=== PATIENT | male | born 1975 | race Hispanic/Latino ===

== ENCOUNTER 2022-03-24 09:29 | Emergency (ER) | payer SELFPAY ==
[2022-03-24] MEDS ORDERED: AMLODIPINE 10 MG TAB ONE (09:54)
[2022-03-24] MEDS ORDERED: NA CHLORIDE 0.9% 1,000 ML ONE (09:54)
[2022-03-24 10:12] LABS: Hematocrit 46.9 % (39.6-49.0); MPV 8.2 fL (7.6-11.3); RBC Red Blood Cell Count 5.19 M/uL (4.33-5.43)
[2022-03-24 10:28] LABS: ALT/SGPT 42 U/L (12-78); AST/SGOT 30 U/L (15-37); Albumin 3.9 g/dL (3.4-5.0); Alkaline Phosphatase 74 U/L (45-117); BUN Blood Urea Nitrogen 15 mg/dL (7-18); Bicarbonate 25 mmol/L (21-32); Bilirubin Total 1.1 mg/dL (0.2-1.0); Glomerular Filtration Rate 102 ml/min (=/>90); Glucose Level 91 mg/dL (74-106); Potassium 3.8 mmol/L (3.5-5.1); Protein, Total 7.6 g/dL (6.4-8.2); Sodium Level 141 mmol/L (136-145); Troponin High Sensitivity 5.4 pg/mL (<58.9)
[2022-03-24 10:31] LABS: CKMB Creatine Kinase MB < 1.0 ng/mL (1.0-3.6)
--- NOTE | 2022-03-24 10:36 | RAD REPORT ---
EXAM DESCRIPTION: RAD - Chest Single View - 03/24/2022 10:26 am CLINICAL HISTORY: HTN COMPARISON: CHEST PA AND LAT 2 VIEW dated 04/11/2014; CHEST PA AND LAT 2 VIEW dated 01/19/2013; CHEST P A AND LAT 2 VIEW dated 12/02/2011Stone Protocol dated 03/11/2020; CT ABDOMEN PELVIS WO CONTRAST dated 04/11/2014No comparisonsNo comparisons FINDINGS: Lines: None. Lungs: No evidence of edema or pneumonia. Pleural: No significant pleural effusions or pneumothorax. Cardiac: The heart size is within normal limits. Bones: No acute fractures. Other: IMPRESSION: No acute cardiopulmonary disease.
--- NOTE | 2022-03-24 11:09 | EDPHYS ---
Physician Documentation [facility] Name: Jim Chambers Age: 47 yrs Sex: Male : 1975 Arrival Date: 03/24/2022 Time: 09:32 Bed 20 Private MD: ED Physician Berenice Lackey HPI: 03/24 10:31 This 47 yrs old Male presents to ER via Ambulatory with complaints of High en Blood Pressure. 10:31 47 yo M with no known PMHx presents to ED with MAGUIRE and blurred vision since yesterday en after working outside in heat. Pt is concerned his BP may be up. Did not check at home. Reports associated muscle cramping yesterday, which has resolved. No CP, SOB, REESE, numbness, tingling, weakness, AMS, or difficulty with speech. No N/V/D. . Historical: - Allergies: 09:35 No Known Allergies; ll1 - Home Meds: 09:35 None [Active]; ll1 - PMHx: 09:35 None; ll1 - PSHx: 09:35 None; ll1 - Immunization history:: Client reports receiving the 2nd dose of the Covid vaccine. - Social history:: Smoking status: Patient reports the use of cigarette tobacco products, denies chronic smoking, but will smoke occasionally. ROS: 10:31 Constitutional: Negative for fever, chills, and weight loss. en 10:31 Constitutional: Negative for chills, fatigue, fever, malaise. 10:31 Eyes: Positive for blurry vision. 10:31 Cardiovascular: Negative for chest pain, edema, orthopnea, palpitations, paroxysmal nocturnal dyspnea. 10:31 Respiratory: Negative for cough, dyspnea on exertion, shortness of breath. 10:31 Abdomen/GI: Negative for abdominal pain, nausea, vomiting, and diarrhea. 10:31 : Positive for darker urine, no hematuria. 10:31 Skin: Negative for rash. 10:31 Neuro: Positive for headache, Negative for altered mental status, dizziness, gait disturbance, loss of consciousness, speech changes, tingling, weakness. 10:31 All other systems are negative. Exam: 10:31 Constitutional: This is a well developed, well nourished patient who is awake, alert, en and in no acute distress. 10:31 Constitutional: The patient appears in no acute distress, alert, awake. 10:31 Head/face: 10:31 Eyes: Pupils: no acute changes, equal, round, and reactive to light and accomodation, Extraocular movements: intact throughout, Conjunctiva: normal, no exudate, no injection. 10:31 ENT: Mouth: Lips: moist, Oral mucosa: pink and intact, moist, Posterior pharynx: Airway: patent. 10:31 Cardiovascular: Rate: bradycardic, Rhythm: regular, Pulses: no pulse deficits are appreciated, Heart sounds: normal, no murmur, no rub, no gallop. 10:31 Respiratory: the patient does not display signs of respiratory distress, Respirations: normal, Breath sounds: are clear throughout, no rales, rhonchi. 10:31 Abdomen/GI: Inspection: abdomen appears normal, Bowel sounds: normal, in all quadrants, Palpation: abdomen is soft and non-tender, in all quadrants. 10:31 Back: CVA tenderness, is absent. 10:31 Musculoskeletal/extremity: ROM: intact in all extremities, full active range of motion. 10:31 Skin: no rash present. 10:31 Neuro: Orientation: appropriate for stated age, no acute changes, to person, place \T\ time. Mentation: appropriate for stated age, Memory: appropriate for stated age, Cranial nerves: is grossly normal based on the patient's age, no acute changes, CN II- XII are normal as tested, Cerebellar function: is grossly normal based on the patient's age, Romberg testing Motor: is grossly normal based on the patient's age, no acute changes, moves all fours, Sensation: no obvious gross deficits, appropriate no acute changes, Gait: is steady. 10:31 Psych: Behavior/mood is pleasant, cooperative, Affect is calm. Vital Signs: 09:41 BP 163 / 101; Pulse 60; Resp 16; Temp 98.2; Pulse Ox 100% ; Weight 72.57 kg; Height 5 ll1 ft. 4 in. (162.56 cm); Pain /10; 10:06 BP 158 / 89; Pulse 50; Resp 16; Pulse Ox 99% ; bp 11:32 BP 161 / 90; Pulse 50; Resp 16; Pulse Ox 100% ; bp 09:41 Body Mass Index 27.46 (72.57 kg, 162.56 cm) ll1 MDM: 10:02 Patient medically screened. en 10:31 Differential diagnosis: hypertensive crisis, Malignant HTN, CVA, intracerebral en hemorrhage, Rhabdomyolysis, dehydration. Data reviewed: vital signs, nurses notes, and as a result, I will check labs, give IVF, po HTN med. 10:37 Data reviewed: EKG, radiologic studies, EKG with sinus bradycardia at 48bpm, no STEMI, en peaked t-waves, normal intervals. 11:05 ED course: Reviewed imaging and labs. BP slightly better after norvasc. Pt feels better en after IVF. HR usually in the 50's per pt. No sxs. no e/o end organ damage or Rhabdo, but sxs likely 2/2 dehydration after working outside in heat. Will d/c home with fluid precautions, low dose norvasc and PCP f/u with BP log instructions. 03/24 09:42 Order name: CBC with Diff; Complete Time: 10:31 en 03/24 09:42 Order name: CMP; Complete Time: 10:38 en 03/24 09:42 Order name: Troponin High Sensitivity; Complete Time: 10:38 en 03/24 09:42 Order name: CXR XRAY; Complete Time: 10:38 en 03/24 09:42 Order name: Ckmb; Complete Time: 10:38 en 03/24 09:42 Order name: EKG - Nurse/Tech; Complete Time: 09:51 en 03/24 09:42 Order name: Saline Lock; Complete Time: 10:06 en Administered Medications: 09:51 Drug: Norvasc (amlodipine) 10 mg Route: PO; bp 11:33 Follow up: Response: No adverse reaction bp 10:06 Drug: NS 0.9% 1000 ml Route: IV; Rate: 1 bolus; Site: left antecubital; bp 11:33 Follow up: IV Status: Completed infusion; IV Intake: 1000ml bp Disposition Summary: 03/24/22 11:08 Discharge Ordered Location: Home en Problem: new en Symptoms: have improved en Condition: Stable en Diagnosis - Essential (primary) hypertension en - Dehydration en Followup: en - With: Sandro Stephen MD - When: 1 - 2 days - Reason: Discharge Instructions: - Discharge Summary Sheet en - Dehydration, Adult en - Hypertension, Adult en Forms: - Medication Reconciliation Form en - Thank You Letter en - Antibiotic Education en - Prescription Opioid Use en Prescriptions: - Norvasc 5 mg Oral Tablet - take 1 tablet by ORAL route once daily; 20 tablet; Refills: 0, Product en Selection Permitted Signatures: Dispatcher [employer] Fredi Clark RN RN Domingo Schmidt RN RN ll1 Shaila Yanez PA PA en
--- NOTE | 2022-03-24 11:09 | ER ---
Nurse's Notes [facility] Name: Jim Chambers Age: 47 yrs Sex: Male : 1975 Arrival Date: 03/24/2022 Time: 09:32 Bed 20 Private MD: Diagnosis: Essential (primary) hypertension;Dehydration Presentation: 03/24 09:41 Chief complaint: Patient states: MAGUIRE and pain above eyes since yesterday after working ll1 in the heat. Cramping in the legs yesterday, couldn't sleep well either. No fever. Coronavirus screen: Vaccine status: Patient reports receiving the 2nd dose of the covid vaccine. Client denies travel out of the [place] in the last 14 days. At this time, the client does not indicate any symptoms associated with coronavirus-19. Ebola Screen: Patient denies travel to an Ebola-affected area in the 21 days before illness onset. Initial Sepsis Screen: Does the patient meet any 2 criteria? No. Patient's initial sepsis screen is negative. Does the patient have a suspected source of infection? No. Patient's initial sepsis screen is negative. Risk Assessment: Do you want to hurt yourself or someone else? Patient reports no desire to harm self or others. Onset of symptoms was March 23, 2022. 09:41 Method Of Arrival: Ambulatory ll1 09:41 Acuity: DAVID 3 ll1 Triage Assessment: 09:43 General: Appears in no apparent distress. Behavior is calm, cooperative, appropriate ll1 for age. Pain: Complains of pain in head Pain currently is 1 out of 10 on a pain scale. Quality of pain is described as aching. Neuro: Reports blurred vision headache. Historical: - Allergies: 09:35 No Known Allergies; ll1 - Home Meds: 09:35 None [Active]; ll1 - PMHx: 09:35 None; ll1 - PSHx: 09:35 None; ll1 - Immunization history:: Client reports receiving the 2nd dose of the Covid vaccine. - Social history:: Smoking status: Patient reports the use of cigarette tobacco products, denies chronic smoking, but will smoke occasionally. Screenin:45 Abuse screen: Denies threats or abuse. Denies injuries from another. Nutritional bp screening: No deficits noted. Tuberculosis screening: No symptoms or risk factors identified. Fall Risk None identified. Assessment: 09:45 General: SEE TRIAGE NOTE. bp 10:06 Reassessment: No changes from previously documented assessment. Patient and/or family bp updated on plan of care and expected duration. Pain level reassessed. 11:32 Reassessment: PT D/C HOME AMBULATORY, DX WITH HTN AND DEHYDRATION. bp Vital Signs: 09:41 BP 163 / 101; Pulse 60; Resp 16; Temp 98.2; Pulse Ox 100% ; Weight 72.57 kg; Height 5 ll1 ft. 4 in. (162.56 cm); Pain /10; 10:06 BP 158 / 89; Pulse 50; Resp 16; Pulse Ox 99% ; bp 11:32 BP 161 / 90; Pulse 50; Resp 16; Pulse Ox 100% ; bp 09:41 Body Mass Index 27.46 (72.57 kg, 162.56 cm) ll1 ED Course: 09:32 Patient arrived in ED. mr 09:33 Arm band placed on Patient placed in an exam room, on a stretcher. ll1 09:34 Fredi Yoo, EDISON is Primary Nurse. bp 09:34 Shaila Yanez PA is PHCP. en 09:34 Berenice Lackey MD is Attending Physician. en 09:43 Triage completed. ll1 09:45 Patient has correct armband on for positive identification. Bed in low position. Call bp light in reach. Side rails up X2. 10:06 Inserted saline lock: 22 gauge in left antecubital area, using aseptic technique. Blood bp collected. 10:28 CXR XRAY In Process Unspecified. EDMS 11:07 Sandro Stephen MD is Referral Physician. en 11:32 No provider procedures requiring assistance completed. IV discontinued, intact, bp bleeding controlled, No redness/swelling at site. Pressure dressing applied. Administered Medications: 09:51 Drug: Norvasc (amlodipine) 10 mg Route: PO; bp 11:33 Follow up: Response: No adverse reaction bp 10:06 Drug: NS 0.9% 1000 ml Route: IV; Rate: 1 bolus; Site: left antecubital; bp 11:33 Follow up: IV Status: Completed infusion; IV Intake: 1000ml bp Medication: 09:45 VIS not applicable for this client. bp Intake: 11:33 IV: 1000ml; Total: 1000ml. bp Outcome: 11:08 Discharge ordered by en 11:32 Discharged to home ambulatory. bp 11:32 Condition: stable 11:32 Discharge instructions given to patient, Instructed on discharge instructions, follow up and referral plans. medication usage, Demonstrated understanding of instructions, follow-up care, medications, Prescriptions given X 1. 11:33 Patient left the ED. bp Signatures: Dispatcher [employer] RADHACA Jodi Tejada Fredi Damon RN RN bp Domingo Fields RN RN ll1 Shaila Yanez PA PA en Corrections: (The following items were deleted from the chart) 09:45 09:41 BP 163 / 101; Pulse 60bpm; Resp 16bpm; Pulse Ox 100%; 72.57 kg; Height 5 ft. 4 ll1 in.; BMI: 27.4; Pain 1/10; ll1
[2022-03-24 11:41] VITALS: TEMP 98.2
[2022-03-24 11:48] VITALS: BP 161/90; O2SAT 100
--- NOTE | 2022-03-25 11:52 | EKG ---
Test Date: 2022-03-24 Test Time: 09:51:55 Weave Room Supervisor: BP MEASUREMENT RESULTS: Intervals: Rate: 48 WY: 138 QRSD: 88 QT: 436 QTc: 389 [place]: P: 35 WY: 138 QRS: 48 T: 52 INTERPRETIVE STATEMENTS: Sinus bradycardia Otherwise normal ECG No previous ECG available for comparison Electronically Signed On 03-25-22 11:50:13 CDT by Jamal Cox
== END 2022-03-24 11:33 | disposition home or self-care (01) ==
LOC: ER 09:29
DX: I10 Essential (primary) hypertension (principal); E86.0 Dehydration; F17.210 Nicotine dependence, cigarettes, uncomplicated
CPT/HCPCS: 36415; 71045; 80053; 82553; 84484; 85025; 93005; 96360; 99284; J7030